=== PATIENT | male | born 1975 | race Caucasian/White ===

== ENCOUNTER → 2018-01-18 19:56 | Outpatient (CLI) | payer OTHER, SELFPAY | PROVIDERS: PCP Family Medicine; Visit Provider Family Medicine | DX: I10 Essential (primary) hypertension (principal); R40.0 Somnolence; R06.83 Snoring; E66.9 Obesity, unspecified | CPT/HCPCS: 95810 ==

== ENCOUNTER → 2020-03-27 09:05 | Outpatient (CLI) | payer OTHER, SELFPAY ==
[2020-03-28 15:35] LABS: Covid-19 Nasal PCR Sendout Lex Not Detected
== END ==
PROVIDERS: PCP Family Medicine; Visit Provider Family Medicine
DX: Z03.818 Encounter for observation for suspected exposure to other biological agents ruled out (principal)
CPT/HCPCS: U0004

== ENCOUNTER 2021-06-12 01:51 | Emergency (ER) | payer OTHER, SELFPAY ==
[2021-06-12 01:54] VITALS: BP 192/109; PULSE 99; RESP 20; TEMP 37.3; O2SAT 98; BMI 40.0
[2021-06-12 02:25] LABS: Coronavirus 19, PCR Not Detected (NotDetected); Influenza A, PCR Not Detected (NotDetected); Influenza B, PCR Not Detected (NotDetected)
--- NOTE | 2021-06-12 02:26 | XR_ITS ---
PROCEDURE INFORMATION: Exam: XR Chest Exam date and time: 06/12/2021 2:26 AM Age: 46 years old Clinical indication: Other: Congestion TECHNIQUE: Imaging protocol: XR of the chest. Views: 2 views. COMPARISON: No relevant prior studies available. FINDINGS: Lungs: Mild underinflation. No definite consolidation. Pleural spaces: No significant pleural effusion. No pneumothorax. Heart/Mediastinum: No cardiomegaly. Bones/joints: No displaced fracture. Soft tissues: Unremarkable. IMPRESSION: No definite acute cardiopulmonary disease. If symptoms persist, consider CT for further evaluation.
[2021-06-12 02:36] LABS: Alanine Aminotransferase 46 U/L (12-78); Albumin Level 4.7 g/dl (3.5-5.0); Albumin/Globulin Ratio 1.3 (1.1-1.8); Alkaline Phosphatase 98 U/L (38-126); Anion Gap 13.7 mEq/L (5-15); Aspartate Amino Transferase 30 U/L (17-59); Bilirubin,Total 0.6 mg/dl (0.2-1.3); Blood Urea Nitrogen 16 mg/dl (9-20); Calcium 9.7 mg/dl (8.4-10.2); Carbon Dioxide 26 mmol/L (22.0-30.0); Chloride 97 mmol/L (98-107); Creatinine Clearance Estimated 252 mL/min (50-200); Estimated Glomerular Filt Rate 122 ml/min (>60); GFR (African American) 148 ML/MIN (>60); Globulin 3.6 g/dL (1.3-3.2); Potassium 4.7 mmoL/L (3.5-5.1); Sodium 132 mmol/L (136-145); Total Protein,Serum 8.3 g/dl (6.3-8.2)
[2021-06-12 02:41] LABS: C-Reactive Protein 22.6 mg/L (0-4)
[2021-06-12 02:54] LABS: Basophils # 0.3 K/mm3 (0-0.2); Basophils % 2.5 % (0.1-2.0); Eosinophils # 0.2 K/mm3 (0.0-0.4); Eosinophils % 1.9 % (0.1-12.0); Hematocrit 55.3 % (42.0-52.0); Hemoglobin 17.3 g/dL (14.1-18.0); Lymphocytes # 2.6 K/mm3 (0.7-4.5); Lymphocytes % 22.6 % (10-50); Mean Corpuscular HGB Conc 31.3 g/dL (31.8-35.4); Mean Corpuscular Hemoglobin 29.2 pg (27.0-31.2); Mean Corpuscular Volume 93.4 fl (80-94); Mean Platelet Volume 8.2 fl (7.4-10.4); Monocytes # 0.8 K/mm3 (0.1-1.0); Monocytes % 6.8 % (1.7-9.3); Neutrophils # 7.6 K/mm3 (1.8-7.8); Neutrophils % 66.1 % (37.0-80.0); Platelet Count 272 K/mm3 (142-424); Procalcitonin 0.097 ng/mL (0.0-2.0); Red Blood Count 5.92 M/mm3 (4.60-6.20); Red Cell Distribution Width 13.4 % (11.5-17.5); White Blood Count 11.5 K/mm3 (4.8-10.8)
[2021-06-12 02:56] LABS: Strep Scrn Group A (Rapid) Positive (Negative)
[2021-06-12 02:57] LABS: Glucose 449 mg/dl (74-100)
[2021-06-12 04:10] LABS: POC Glucose,Bedside 407 (70-110)
[2021-06-12 04:12] LABS: Erythrocyte Sedimentation Rate 42 mm/hr (0-15)
--- NOTE | 2021-06-12 04:38 | [facility].EDURI ---
ED Disposition Clinical Impression: Acute streptococcal pharyngitis Disposition: Home, Self-Care Condition on Discharge: Good Instructions: DI for Strep Throat Additional Instructions: fluids and gargle and change tooth brush - use meds Prescriptions: Cefdinir [Omnicef 300mg Capsule] 300 mg PO BID #14 cap Transmission Status: Pending to [facility] Referrals: Billy Rosado MD [Primary Care Provider] - - Critical Care Critical Care Time: No Attestation: On 06/12/21, the high probability of a clinically significant, sudden or life threatening deterioration of the following system(s) required my full and direct attention, intervention and personal management. The time I documented below is in addition to time spent performing reported procedures but includes the following listed in this critical care notation. Medical Decision Making - Medical Records Medical records reviewed: Yes: I reviewed the patient's medical records. - Saul Inquiry Pt receiving controlled substance: No Vital Signs: 06/12/21 01:54 Temperature 99.1 F Temperature Source Oral Pulse Rate [Apical] 99 H Respiratory Rate 20 Blood Pressure [Right Arm] 192/109 H Blood Pressure Mean [Right Arm] 136 Blood Pressure Source [Right Arm] Automatic Cuff Blood Pressure Position [Right Arm] Sitting 02 Sat by Pulse Oximetry 98 Oxygen Delivery Method Room Air - Lab Data Lab results reviewed: Yes: I reviewed the patient's lab results. Lab Results 06/12/21 02:10: WBC 11.5 H, RBC 5.92, Hgb 17.3, Hct 55.3 H, MCV 93.4, MCH 29.2, MCHC 31.3 L, RDW 13.4, Plt Count 272, MPV 8.2, Neut % (Auto) 66.1, Lymph % (Auto) 22.6, Coffee % (Auto) 6.8, Eos % (Auto) 1.9, Baso % (Auto) 2.5 H, Neut # (Auto) 7.6, Lymph # (Auto) 2.6, Coffee # (Auto) 0.8, Eos # (Auto) 0.2, Baso # (Auto) 0.3 H 06/12/21 02:10: Sodium 132 L, Potassium 4.7, Chloride 97 L, Carbon Dioxide 26, Anion Gap 13.7, BUN 16, Creatinine 0.70, Estimated Creat Clear 252, Estimated GFR 122, Est GFR ( Amer) 148, Glucose 449 H*, Calcium 9.7, Total Bilirubin 0.6, AST 30, ALT 46, Alkaline Phosphatase 98, C-Reactive Protein 22.6 H, Total Protein 8.3 H, Albumin 4.7, Globulin 3.6 H, Albumin/Globulin Ratio 1.3 06/12/21 02:10: ESR 42 H 06/12/21 02:10: Group A Strep Rapid Positive A 06/12/21 02:10: SARS-CoV-2 (PCR) Not detected, Influenza A Untype (PCR) Not detected, Influenza Type B (PCR) Not detected 06/12/21 02:10: Procalcitonin 0.097 06/12/21 04:01: POC Glucose 407 H* Result diagrams: 06/12/21 02:10 06/12/21 02:10 Orders (Tests/Meds): ED MEDICATIONS Generic Name Dose Route Start Last Admin Trade Name Freq PRN Reason Stop Dose Admin Sodium Chloride 1,000 mls @ 999 mls/hr 06/12/21 02:30 06/12/21 02:24 Sod Chlor 0.9% 1000ml Bag IV 06/12/21 03:30 999 mls/hr .Q1H1M CHARLES Administration Ceftriaxone Sodium 1 gm/ 50 mls @ 100 mls/hr 06/12/21 04:45 Sodium Chloride IV 06/26/21 04:44 Q24H CHARLES Discontinued Medications Generic Name Dose Route Start Last Admin Trade Name Freq PRN Reason Stop Dose Admin Dexamethasone Sodium Phosphate 10 mg 06/12/21 02:21 06/12/21 02:24 Dexamethasone 4mg/Ml 5ml Mdv IV 06/12/21 02:22 10 mg ONCE ONE Administration Insulin Human Regular 5 unit 06/12/21 03:02 06/12/21 03:05 Insulin Human Regular 100 Units/Ml 10ml Vial IVP 06/12/21 03:03 5 unit ONCE ONE Administration Ketorolac Tromethamine 30 mg 06/12/21 02:21 06/12/21 02:24 Ketorolac 30mg/Ml Vial IV 06/12/21 02:22 30 mg ONCE ONE Administration ORDERS Category Date Time Status Hemoglobin A1C Stat Lab 06/12/21 04:33 Ordered - Radiology Data #1 Image(s): Chest Image Reviewed: Yes I have reviewed radiologist's interpretation Preliminary Findings: Normal/NAD Medical Decision Narrative: pt with no abscess but has strep - URI/Sore Throat HPI - General Chief Complaint: Upper Respiratory Infection Stated Complaint: sore throat,runny nose,c
[2021-06-12 04:46] VITALS: BP 140/82; PULSE 84; RESP 20; TEMP 36.9; O2SAT 98
[2021-06-12 04:52] LABS: Hemoglobin A1C 11.9 % (4.0-6.0)
== END 2021-06-12 04:59 | disposition home or self-care (01) ==
PROVIDERS: Emergency Provider Emergency Medicine; PCP Family Medicine
DX: J02.0 Streptococcal pharyngitis (principal); E11.65 Type 2 diabetes mellitus with hyperglycemia
CPT/HCPCS: 71046; 80053; 82962; 83036; 84145; 85025; 85651; 86140; 87430; 96365; 96366; 96375; 99283; C9803; J0696; U0003; U0005